=== PATIENT | male | born 1985 | race Caucasian/White ===

== ENCOUNTER 2020-04-19 01:13 | Emergency (ER) | payer MEDICAID ==
[~2020-04-19] VITALS: Ht 167.6 cm; Wt 66.0 kg
[2020-04-19] MEDS ORDERED: BACITRACIN ZINC OINT UDPKT TOP ONE (02:15)
[2020-04-19] MEDS ORDERED: TETANUS, DIPHTHERIA, PERTUSSIS VAC/PF 0.5ML (>7YR OLD) IM ONE (02:15)
[2020-04-19] MEDS ORDERED: PROPOFOL 200MG/20ML VIAL IV ONE (03:00)
[2020-04-19] MEDS ORDERED: ONDANSETRON HCL 4MG/2ML INJ IV ONE ×2 (03:00→06:30)
[2020-04-19] MEDS ORDERED: MORPHINE SULFATE 4 MG/ML CPJ (NOT FOR IM USE) IV ONE (04:15)
[2020-04-19] MEDS ORDERED: FENTANYL CITRATE/PF 50MCG/ML 2ML VIAL IV ONE (05:00)
[2020-04-19] MEDS ORDERED: KETAMINE HCL 50 MG/ML 10ML IV ONE (06:30)
[2020-04-19 08:15] VITALS: BP 138/93
== END 2020-04-19 08:21 | disposition home or self-care (01) ==
LOC: ER 01:13
DX: S43.084A Other dislocation of right shoulder joint, initial encounter (principal); Y04.0XXA Assault by unarmed brawl or fight, initial encounter; Y93.9 Activity, unspecified; Y92.9 Unspecified place or not applicable
CPT/HCPCS: 23650; 73030; 82962; 90471; 90715; 93005; 96374; 99152; 99285; J2270; J2405; J2704; J3490; J3010

== ENCOUNTER 2020-04-19 22:11 | Emergency (ER) | payer MEDICAID ==
[~2020-04-19] VITALS: Ht 170.2 cm; Wt 70.0 kg
[2020-04-20 01:12] VITALS: BP 133/69
[2020-04-20] MEDS ORDERED: PROPOFOL 200MG/20ML VIAL IV ONE ×2 (01:45→03:57)
[2020-04-20] MEDS ORDERED: KETAMINE HCL 50 MG/ML 10ML IV ONE (01:45)
[2020-04-20] MEDS ORDERED: ACETAMINOPHEN 500MG TABLET ONE ×2 (02:30→02:34)
[2020-04-20] MEDS ORDERED: KETAMINE HCL 50 MG/ML 10ML ONE (03:56)
== END 2020-04-20 04:30 | disposition home or self-care (01) ==
LOC: ER 22:11
DX: S43.084A Other dislocation of right shoulder joint, initial encounter (principal); Y04.0XXA Assault by unarmed brawl or fight, initial encounter; Y93.89 Activity, other specified; Y92.9 Unspecified place or not applicable
CPT/HCPCS: 23650; 73020; 73030; 99284; J2704; J3490

== ENCOUNTER 2022-04-07 09:00 | Emergency (ER) | payer MEDICAID ==
[~2022-04-07] VITALS: Ht 172.7 cm; Wt 72.0 kg
[2022-04-07] MEDS ORDERED: SODIUM CHLORIDE 0.9% 1,000 ML IV ONE (09:45)
[2022-04-07 10:18] LABS: BASOPHILS % 0.6 % (0.0-2.0); EOSINOPHILS % 1.1 % (0.0-5.0); HEMATOCRIT. 38.9 % (42.0-52.0); HEMOGLOBIN. 13.1 g/dL (14.0-18.0); LYMPHOCYTES % 11.4 % (20.0-50.0); MEAN CORPUSCULAR VOLUME 92.2 fL (80.0-94.0); MEAN PLATELET VOLUME 7.2 fl (7.4-10.4); MONOCYTES % 6.7 % (2.0-8.0); NEUTROPHILS % 80.2 % (40.0-76.0); PLATELET 359 x1000/uL (130-400); RED BLOOD CELL COUNT 4.21 mill/uL (4.7-6.1); RED CELL DISTRIBUTION WIDTH 13.4 % (11.6-14.6)
[2022-04-07 10:28] LABS: CHLORIDE 106 mEq/L (98-107)
[2022-04-07 10:35] LABS: ETHANOL BLOOD < 10 mg/dL
[2022-04-07 11:30] VITALS: BP 101/60
== END 2022-04-07 13:31 | disposition left against medical advice (07) ==
LOC: ER 09:15
DX: T40.691A Poisoning by other narcotics, accidental (unintentional), initial encounter (principal); Y92.89 Other specified places as the place of occurrence of the external cause; F32.9 Major depressive disorder, single episode, unspecified
CPT/HCPCS: 36415; 71045; 80053; 80307; 80320; 80329; 85025; 93005; 99285; J7030; G0480